=== PATIENT | female | born 1990 | race Caucasian/White ===

== ENCOUNTER 2023-12-18 06:21 | Emergency (ER) | payer OTHER, SELFPAY ==
[2023-12-18] VITALS (7 sets, daily range): BP systolic 98–107; BP diastolic 65–73; PULSE 81–102; RESP 16; TEMP 37.2; O2SAT 99–100; BMI 24.7
--- NOTE | 2023-12-18 07:05 | ED.URI ---
HPI - URI/Sore Throat General Chief Complaint: Upper Respiratory Symptoms Stated Complaint: resp infection Time Seen by Provider: 12/18/23 06:33 Source: patient Mode of arrival: Ambulatory History of Present Illness HPI Narrative: Patient is a 33-year-old female with no significant past medical history comes into the ED for evaluation of flu-like symptoms. Patient states that she is visiting from [place] for her brother's wedding, states that she arrived on Saturday, states that she was feeling a little chest cold prior to arrival, however she has had persistent cough runny nose sore throat body aches since. She denies any actual visual disturbances neck pain chest pain shortness of breath nausea vomiting abdominal pain or any other GI/ symptoms at this time. No trauma no falls not on any blood thinners Related Data Previous Rx's Medication Instructions Recorded amoxicillin 500 mg-potassium 1 tab PO BID #10 tabs 12/18/23 clavulanate 125 mg tablet (Augmentin) Allergies Allergy/AdvReac Type Severity Reaction Status Date / Time No Known Drug Allergies Allergy Verified 12/18/23 07:08 Review of Systems Review of Systems Narrative: HEENT: Denies, eye drainage, eye irritation, head trauma,voice change, positive sore throat Cardiovascular: Denies any chest pain, palpitations, shortness of breath, tachycardia Respiratory: Denies any shortness of breath, wheeze, stridor. Positive cough GI/: Denies any abdominal pain, nausea, vomiting, diarrhea, bright red blood per rectum, melanotic stools, urinary frequency, urinary retention, dysuria, hematuria MSK: Denies any joint pain, positive myalgias Skin: Denies any rashes, lesions, discoloration Neuro: Denies any headache, lightheadedness, dizziness, fainting, weakness Psych: Denies SI/HI Patient History Social History Smoking Status: Never smoker Smoking Status: Never smoker alcohol intake frequency: a few times a week Substance Use Type: does not use Exam Narrative Exam Narrative: General: Cooperative, comfortable, well-developed, not in acute distress HEENT: Normocephalic, atraumatic, PERRLA, normal sclera, eyelids normal, Neck: Active full range of motion, atraumatic Chest: Normal to inspection, negative crepitus, no overlying erythema ecchymosis Respiratory: Normal respiratory effort, not in acute respiratory distress, clear to auscultation bilaterally, wheeze, tachypnea, rhonchi, rales, positive cough, rhinorrhea Cardiology: Regular rate rhythm negative gallop, murmur, rubs GI/: Normal to inspection, soft, nonrigid, no tenderness to palpation, exam deferred MSK: Full range of active range of motion of all 4 extremities, atraumatic Skin: No rashes lesions noted Neuro: Alert awake oriented x3, moves all 4 extremities spontaneously, cranial nerves intact, able to answer all questions appropriately follows commands appropriately Psych: Cooperative, negative suicidal or homicidal ideations Initial Vital Signs Initial Vital Signs: Vital Signs Pulse Rate 102 H 12/18/23 06:27 Pulse Oximetry 100 12/18/23 06:27 Course Orders Ordered: ED Orders 12/18/23 07:08 CXR [XR chest 2V] Stat 12/18/23 08:10 Strep Grp A by PCR Rapid Stat Strep Screen Stat 12/18/23 08:13 Urine Microscopic Stat Discontinued Medications Amoxicillin/Clavulanate Potassium (Amoxicillin/Clav 875/125 Mg) 1 tab PO NOW ONE Stop: 12/18/23 10:01 Last Admin: 12/18/23 10:15 Dose: 1 tab Documented By: RB Dexamethasone (Dexamethasone 4 Mg/Ml Vial) 10 mg IM NOW ONE Stop: 12/18/23 08:23 Last Admin: 12/18/23 09:35 Dose: Not Given Documented By: RB Dexamethasone (Dexamethasone 1 Mg Tablet) 10 mg 0.15 mg/kg (10 mg) PO NOW ONE Stop: 12/18/23 09:31 Last Admin: 12/18/23 09:36 Dose: 10 mg Documented By: RB Ketorolac Tromethamine (Ketorolac 30 Mg/Ml Vial) 15 mg IM NOW ONE Stop: 12/18/23 08:23 Last Admin: 12/18/23 09:35 Dose: 15 mg Documented By: RB Vital Signs Vital signs: Vital Signs - 8 hr 12/18/23 06:27 12/18/23 06:28 12/18/23 06:28 Temperature Pulse Rate 102 H 100 H Respiratory Rate Blood Pressure 104/70 Pulse Oximetry 100 100 Oxygen Delivery Method 12/18/23 06:30 12/18/23 06:30 12/18/23 06:31 Temperature 98.9 F Pulse Rate 93 H 91 H Respiratory Rate 16 Blood Pressure 98/65 104/70 Pulse Oximetry 100 100 Oxygen Delivery Method Room Air 12/18/23 06:40 12/18/23 06:50 12/18/23 10:18 Temperature Pulse Rate 87 81 87 Respiratory Rate Blood Pressure Pulse Oximetry 100 100 99 Oxygen Delivery Method 12/18/23 10:18 Temperature Pulse Rate Respiratory Rate Blood Pressure 107/73 Pulse Oximetry Oxygen Delivery Method MDM - URI/Sore Throat Differential Diagnosis Differential diagnosis: Likely upper respiratory infection, sinusitis, bronchitis and pharyngitis Medical Records Attestation: I reviewed the patient's medical records. Lab Data Attestation: I reviewed the patient's lab results. Labs: Lab Results 12/18/23 12/18/23 Range/Units 08:10 08:13 Urine RBC 1-5/hpf (0-5/HPF) Urine WBC None seen (0-5/HPF) Ur Squamous Epith Cells 0-1 /hpf (0-5/HPF) Urine Bacteria None seen (None) Ur Culture Indicated? Cult not indicated Vol Urine Centrifuged 10ml (spun) Group A Strep (PCR) Positive H (Negative) Point of Care Testing Test Results Negative Urine Dip Bedside Urine Glucose Negative Bedside Urine Bilirubin - Negative Bedside Urine Ketone - Negative Urine Specific [place] 1.015 Bedside Urine Occult Blood +++ Bedside Urine pH 6.0 Bedside Urine Protein - Negative Bedside Urine Urobilinogen - Negative Bedside Urine Nitrite - Negative Bedside Urine Leukocytes - Negative Esterase MDM Narrative Medical decision making narrative: Patient is a 33-year-old female with no past medical history presenting for flu-like symptoms, patient stating that she did not want to be tested for COVID or flu, rapid strep was positive for group a, patient was given oral antibiotics here and discharged home prescription for this. Was also given Decadron and Toradol for symptomatic relief, at time of discharge stating symptoms have almost completely resolved. Patient was given strict return precautions safe for discharge home with outpatient follow-up Discharge Plan Departure Patient Disposition: Home Clinical Impression: Acute infective pharyngitis due to Streptococcus species Prescriptions: New amoxicillin-pot clavulanate [Augmentin] 500-125 mg tablet 1 tab PO BID Qty: 10 0RF Referrals: ProviderRamiro [Primary Care Provider] - Stand Alone Forms: Patient Portal/API
--- NOTE | 2023-12-18 07:08 | DI.RAD.S_ITS ---
PROCEDURE: XR CHEST 2V INDICATIONS: cough TECHNIQUE: 2 views of the chest were acquired. COMPARISON: None. FINDINGS: Surgical changes and devices: None. Lungs and pleura: Lungs are clear. No pleural effusions or pneumothorax. Mediastinum: Mediastinal contours are normal. Heart size is normal. Bones and chest wall: No suspicious bony abnormalities. Soft tissues appear unremarkable. IMPRESSION: No acute cardiopulmonary abnormality is seen. Dictated by: Tony Hernandez M.D. on 12/18/2023 at 8:09 Approved by: Tony Hernandez M.D. on 12/18/2023 at 8:09
[2023-12-18 08:30] LABS: Urine Volume 10mL (spun)
[2023-12-18 08:35] LABS: Bacteria Urine None Seen; Culture Indicated Urine Cult Not Indicated; RBC Urine 1-5/HPF (0-5/HPF); Squamous Epithelial Cell Urine 0-1 /HPF (0-5/HPF); WBC Urine None Seen (0-5/HPF)
[2023-12-18] MEDS: KETOROLAC 30 MG/ML VIAL 15 MG IM (09:35)
[2023-12-18] MEDS: dexAMETHasone 1 MG TABLET 10 MG PO (09:36)
[2023-12-18 09:56] LABS: Strep Grp A by PCR Rapid Positive (Negative)
[2023-12-18] MEDS: AMOXICILLIN/CLAV 875/125 MG 1 TAB PO (10:15)
== END 2023-12-18 10:52 | disposition home or self-care (01) ==
PROVIDERS: Emergency Provider Student in an Organized Health Care Education/Training Program
DX: J02.0 Streptococcal pharyngitis (principal)
CPT/HCPCS: 71046; 81003; 81015; 81025; 87081; 87651; 96372; 99284; J1885